=== PATIENT | male | born 1985 | race Two or more races ===

== ENCOUNTER 2020-04-01 05:13 | Day surgery (SDC) | payer OTHER ==
--- NOTE | 2020-03-28 15:40 | NUR ---
[employer] translation services used to obtained medical history in [place]ic. 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
[~2020-04-01] VITALS: Ht 172.7 cm; Wt 84.4 kg
[2020-04-01] VITALS (11 sets, daily range): BP systolic 121–145; BP diastolic 72–96
[2020-04-01] MEDS ORDERED: celeBREX 200mg Cap **SURGERY PATIENTS ONLY ORAL ONE (06:00)
[2020-04-01] MEDS ORDERED: ceFAZolin 1gm IVPB IVPB ONE ×2 (06:00)
[2020-04-01] MEDS ORDERED: oxyCONTIN 10mg tab ORAL ONE (06:00)
[2020-04-01] MEDS ORDERED: Bacitracin 50000 Units Vial ONE (06:32)
[2020-04-01] MEDS ORDERED: Bupivacaine w/Epi 0.5% 30ml Vial INJ ONE (06:32)
[2020-04-01] MEDS ORDERED: NeoSporin Gu Irrig 1ml Amp IRRIG ONE (06:32)
[2020-04-01] MEDS ORDERED: LR 1000ml 1,000 ML IVLG SCH (06:38)
--- NOTE | 2020-04-01 06:39 | Anethesia Preoperative Eval ---
Anesthesia Pre-op PMH/ROS General Date of Evaluation: Apr 01, 2020 Time of Evaluation: 06:49 Anesthesiologist: Douglas ASA Score: ASA 2 Mallampati Score Class I : Soft palate, uvula, fauces, pillars visible Class II: Soft palate, uvula, fauces visible Class III: Soft palate, base of uvula visible Class IV: Only hard plate visible Mallampati Classification: Class II Surgeon: Katalina Diagnosis: L Arm Pain Surgical Procedure: ORIF L Radius Anesthesia History: none Family History: no anesthesia problems Allergies: Coded Allergies: No Known Allergies (Unverified , 03/28/20) Medications: see eMAR Patient NPO?: Yes Past Medical History Other: obesity - BMI 30 Anesthesia Pre-op Phys. Exam Physician Exam Last Vital Signs Date Time Temp Pulse Resp B/P (MAP) Pulse Ox O2 Delivery O2 Flow Rate FiO2 04/01/20 05:48 Room Air 04/01/20 05:46 97.1 83 18 121/72 98 Constitutional: NAD Neurologic: CN 2-12 intact Cardiovascular: RRR Respiratory: CTA Gastrointestinal: S/NT/ND Airway Exam Mallampati Score: Class II MO: full ROM: limited Teeth: missing, intact Anesthesia Pre-op A/P Risk Assessment & Plan Assessment: ASA 2 Plan: GA, SED, GlideScope Status Change Before Surgery: No Pre-Antibiotics Dru Gram Ancef IV Given Within 1 Hr of Incision: Yes Time Given: 07:22 Kenan Cole MD Apr 01, 2020 06:39
[2020-04-01] MEDS ORDERED: Lidocaine 1% MPF 10mg/ml 5ml ONE (06:44)
[2020-04-01] MEDS ORDERED: Sodium Chloride 10ml vial INJ ONE (06:44)
[2020-04-01] MEDS ORDERED: Labetalol 5mg/ml 20ml vial IV PRN (06:45)
[2020-04-01] MEDS ORDERED: HYDROcodone/Acetamin 5/325 tab ORAL PRN ×2 (06:45→07:15)
[2020-04-01] MEDS ORDERED: Hydromorphone 0.5mg/0.5ml inj IVP PRN (06:45)
[2020-04-01] MEDS ORDERED: DiphenhydrAMINE 50mg/ml Inj IVP PRN (06:45)
[2020-04-01] MEDS ORDERED: Ketorolac 30mg Inj IV PRN ×2 (06:45)
[2020-04-01] MEDS ORDERED: HYDROcodone/Acetamin 7.5/325 tab ORAL PRN (06:45)
[2020-04-01] MEDS ORDERED: Metoclopramide 10mg/2ml Inj IVP PRN (06:45)
[2020-04-01] MEDS ORDERED: oxyCODONE HCL/Acetaminophen 5/325mg ORAL PRN (06:45)
[2020-04-01] MEDS ORDERED: Atropine Sulfate 0.4mg/ml inj IVP PRN (06:45)
[2020-04-01] MEDS ORDERED: Meperidine 25mg/0.5ml Inj (FOR RIGORS ONLY) IV PRN (06:45)
[2020-04-01] MEDS ORDERED: Midazolam 2mg/2ml Inj IVP PRN (06:45)
[2020-04-01] MEDS ORDERED: LORazepam Inj 2mg/ml 1ml IV PRN (06:45)
[2020-04-01] MEDS ORDERED: fentaNYL 100 mcg/2 mL IV PRN (06:45)
[2020-04-01] MEDS ORDERED: Adenosine 6mg/2ml Inj ONE (06:46)
[2020-04-01] MEDS ORDERED: fentaNYL 100 mcg/2 mL IV ONE (06:46)
[2020-04-01] MEDS ORDERED: Ropivacaine 5mg/ml Vial 20ml INJ ONE (06:46)
[2020-04-01] MEDS ORDERED: NS Irrig 1000ml IRRIG ONE ×2 (06:54→07:31)
[2020-04-01] MEDS ORDERED: Sterile Water Irrig 1000ml IRRIG ONE (07:00)
[2020-04-01] MEDS ORDERED: LR 1000ml ONE (07:00)
--- NOTE | 2020-04-01 07:09 | Pre-Procedure Note/Attestation ---
Pre-Procedure Note/Attestation Complete Prior to Procedure Planned Procedure: left Procedure Narrative: left radius ORIF Indications for Procedure Pre-Operative Diagnosis: left radius fracture Attestation I attest that I discussed the nature of the procedure; its benefits; risks and complications; and alternatives (and the risks and benefits of such alternatives ), prior to the procedure, with the patient (or the patient's legal sales representatives). I attest that, if there was a reasonable possibility of needing a blood transfusion, the patient (or the patient's legal sales representatives) was given the [facility] standardized written summary, pursuant to the Kenn Jordan Blood Safety Act ([place] Health and Safety Code # 1645, as amended). I attest that I re-evaluated the patient just prior to the surgery and that there has been no change in the patient's H&P, except as documented below: NONE Roldan Darden MD Apr 01, 2020 07:09
[2020-04-01] MEDS ORDERED: HYDROmorphone 1mg/ml Carpuject SUBQ PRN (07:15)
[2020-04-01] MEDS ORDERED: Tylenol #3 tab (300mg/30mg) ORAL PRN (07:15)
--- NOTE | 2020-04-01 08:47 | Immediate Post-Op Evaluation ---
Immediate Post-Op Evalulation Immediate Post-Op Evalulation Procedure: ORIF L Radiius Date of Evaluation: Apr 01, 2020 Time of Evaluation: 09:25 IV Fluids: 600 LR Blood Products: 0 Estimated Blood Loss: 25 Urinary Output: 0 Blood Pressure Systolic: 130 Blood Pressure Diastolic: 98 Pulse Rate: 82 Respiratory Rate: 16 O2 Sat by Pulse Oximetry: 100 Temperature (Fahrenheit): 97.6 Pain Score (1-10): 1 Nausea: No Vomiting: No Complications 0 Patient Status: awake, reacts, patent, extubated, none Hydration Status: adequate Dru Gram Ancef IV Given Within 1 Hr of Incision: Yes Time Given: 07:22 Kenan Cole MD Apr 01, 2020 08:47
--- NOTE | 2020-04-01 08:48 | 48 Hour Post Anesthesia Eval ---
Post Anesthesia Evaluation Procedure: ORIF L Radiius Date of Evaluation: Apr 01, 2020 Time of Evaluation: 11:34 Blood Pressure Systolic: 138 0: 76 Pulse Rate: 81 Respiratory Rate: 18 Temperature (Fahrenheit): 98 O2 Sat by Pulse Oximetry: 100 Airway: patent Nausea: No Vomiting: No Pain Intensity: 1 Hydration Status: adequate Cardiopulmonary Status: Stable Mental Status/LOC: patient returned to baseline Follow-up Care/Observations: 0 Post-Anesthesia Complications: 0 Follow-up care needed: ready to discharge Kenan Cole MD Apr 01, 2020 08:48
--- NOTE | 2020-04-01 08:59 | Brief Operative Note ---
Immediate Post Operative Note Operative Note Pre-op Diagnosis: left radius fracture Procedure: Left radius ORIF Post-op Diagnosis: same as pre-op Surgeon: gordy Surveying Technician: Christi Anesthesiologist: Hunter Anesthesia: general Specimen: none Complications: none Condition: stable Fluids: 500 cc crystoloid Estimated Blood Loss: minimal Drains: none Implant(s) used?: Yes - tiesha titanum plate with locking and non locking screws, 6 screws Roldan Darden MD Apr 01, 2020 08:59
--- NOTE | 2020-04-01 10:56 | Diagnostic Imaging Report ---
INDICATION: Pain, intraoperative TECHNIQUE: Intraoperative imaging Fluoroscopy time: 17.6 seconds Total dose: 0.44350 mGym2 Total number of images: 8 COMPARISON: None FINDINGS: Intraoperative images document surgical repair of mid to distal radial fracture with plate and screws. IMPRESSION:
--- NOTE | 2020-04-01 12:00 | NUR ---
Continous ice bag to left arm. Arm sling in place. Good capillary filling to all left fingers. Patient moving all left fingers well.
[2020-04-01] MEDS ORDERED: D5 1/2NS 1,000 ML IV SCH (16:00)
--- NOTE | 2020-04-01 17:45 | Operative Note - Dictated ---
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 PROCEDURE: 1. Left radius takedown of malunion and nonunion. 2. Left distal third radius open reduction and internal fixation with a 6 hole plate with 4 bicortical screws and 2 bicortical locking screws. 3. Local bone grafting of the fracture site with autogenous bone graft. 4. Application of sugar-tong splint, left arm. 5. Use of image intensifier with interpretation by surgeon. SURGEON: Roldan Darden MD. PALEOBOTANIST: Ama Barraza PA-C. ANESTHESIOLOGIST: Kenan Cole MD. ANESTHESIA: General LMA anesthesia. ESTIMATED BLOOD LOSS: Less than 20 mL. TOURNIQUET TIME: 65 minutes. COMPLICATIONS: None. BRIEF HISTORY: The patient is a pleasant 35-year-old gentleman who had a mechanical fall and had a distal third left-sided radius fracture. He was immediately evaluated in the emergency room and was splinted. He did not have follow-up until he was seen by us 6 weeks later. At that time, there is shortening and 100% displacement of the fracture. There was early callus formation. After full discussion of risks and benefits of the surgery and complications associated with it including infection, bleeding, neurovascular complication, possibility of malunion, possibility of nonunion, possibility of need for surgery, possibility of hardware failure, possible need for further surgical intervention including revision, as well as other complications related to DVT, PE, loss of motion as well as anesthesia complication, he opted for surgical treatment as described above. OPERATIVE PROCEDURE: The patient was brought to the operating room and was placed supine. All pressure points well padded. General anesthesia was induced. The left arm was prepped and draped in usual sterile fashion. A time-out was performed. Preoperative antibiotics were given. The left arm was exsanguinated and tourniquet was inflated to 275 mmHg. Standard volar incision was made over the distal third of the radius. The incision was taken through subcutaneous tissue. The intra nervous plane was developed and flexor carpi radialis tendon was retracted radially. The radius was identified and was freed. The soft tissue was gently and meticulously dissected off of the proximal distal radius. The fracture nonunion site was identified. This was then debrided using combination of rongeurs, Semora elevators as well as curettes. There was extensive scar tissue and callus formation, which had to be taken down and meticulous cleaning of the area was performed. At this point, the ends of the bone were visualized and they were cleaned using rongeurs and curettes. Once this was completed, the reduction was achieved by manual traction and using appropriate clamps. At this point, a 6-hole plate was applied and locked in using a K-wire initially. Image intensifier was brought in and the fracture reduction was checked and appeared to be appropriate. There was excellent recreation of length. There was no displacement and radial bow was created. There was no dorsal volar angulation. Wounds were thoroughly then irrigated using copious amount of fluid. Local bone grafts were obtained from takedown of the early callus formation as well as debridement of the intramedullary canal of the bone. At this point, using compression techniques, 4 bicortical screws were placed, 2 on either side of the fracture site. Three of them measured 16 mm and 1 measured 14 mm. Subsequently, additional 2 locking screws, 1 on each side of the fracture was applied to the distal end of the plate measuring 16 mm. This provided excellent stability. The elbow was placed through range of motion. There was excellent range of motion. The range of motion of the wrist was checked and appeared to be excellent. The rotation was checked and appeared to be excellent. Wounds were thoroughly irrigated using copious amount of fluid. Local bone grafting was performed using the bone graft that was obtained from the area as well as from the drill holes for the screws. Excellent compression of fracture was noted on AP and lateral views. At this point, the subcutaneous tissue was closed using 2-0 Vicryl suture. Skin was closed with 3-0 Monocryl suture. A sugar-tong splint was applied. The last images were obtained and reduction was anatomical, both on AP and lateral and the hardware was in excellent position. The patient tolerated the procedure well without any complication, was taken to recovery room in stable condition. All lap counts and instrument counts were correct. Roldan Ryne Darden DR: ROBERTO JOB#: [id number] CC: SHANIA
== END 2020-04-01 12:00 | disposition home or self-care (01) ==
LOC: SUR 05:13
DX: S52.502P Unspecified fracture of the lower end of left radius, subsequent encounter for closed fracture with malunion (principal); X58.XXXD Exposure to other specified factors, subsequent encounter; E66.9 Obesity, unspecified; Z68.28 Body mass index [BMI] 28.0-28.9, adult
CPT/HCPCS: 25405; 73090; 76000; 94003; C1713; J0153; J0690; J1100; J2250; J2405; J2704; J2795; J3010; J7120; 94150